=== PATIENT | female | born 2000 | race Caucasian/White ===

== ENCOUNTER 2023-06-09 09:12 | Day surgery (SDC) | payer BC ==
[2023-06-04 15:03] VITALS: BMI 28.1
[2023-06-09] MEDS ORDERED: Lidocaine 1% MPF 2 ML VIAL ONE (10:01)
[2023-06-09] MEDS ORDERED: CEFAZOLIN 2 GM VIAL ONE (10:02)
[2023-06-09] MEDS ORDERED: Sodium Chloride 0.9% 100 ML ONE (10:02)
[2023-06-09] MEDS ORDERED: Midazolam HCl 2 mg/2 ml Vial ONE (13:24)
[2023-06-09] MEDS ORDERED: EPINEPHrine 1 MG/ML AMP ONE (13:32)
[2023-06-09] MEDS ORDERED: Lidocaine 2% PF 5 ML VIAL ONE (13:32)
[2023-06-09] MEDS ORDERED: Bupivacaine 0.25% HCL 30 ML VIAL ONE (13:32)
[2023-06-09] MEDS ORDERED: fentaNYL PF 100 MCG/2 ML SYRINGE ONE (13:33)
[2023-06-09] MEDS ORDERED: Dexamethasone 20 MG/5 ML VIAL ONE (13:49)
[2023-06-09] MEDS ORDERED: Lidocaine 1% PF 5 ML VIAL ONE (13:49)
[2023-06-09] MEDS ORDERED: PROPOFOL 200 MG/20 ML VIAL ONE (13:49)
[2023-06-09] MEDS ORDERED: Ondansetron PF 4 MG/2 ML Vial ONE (13:49)
== END 2023-06-09 16:17 | disposition home or self-care (01) ==
LOC: SDC 09:12
PROVIDERS: ATTEND Surgery
PROC: 0HBV0ZZ Excision of Bilateral Breast, Open Approach (ICD-10-PCS; principal; 2023-06-09)
DX: D24.2 Benign neoplasm of left breast (principal); D24.1 Benign neoplasm of right breast; N63.11 Unspecified lump in the right breast, upper outer quadrant; N63.12 Unspecified lump in the right breast, upper inner quadrant; F41.9 Anxiety disorder, unspecified; G43.909 Migraine, unspecified, not intractable, without status migrainosus; Z88.1 Allergy status to other antibiotic agents; Z91.018 Allergy to other foods
CPT/HCPCS: 88305; J0171; J1100; J2001; J2250; J2405; J2704; J3490; S0020